=== PATIENT | male | born 1995 | race Caucasian/White ===

== ENCOUNTER 2016-08-19 02:26 | Emergency (ER) | payer SELFPAY ==
[~2016-08-19] VITALS: Ht 177.8 cm; Wt 75.0 kg
[~2016-08-19 02:26] MED LIST: AUGM875 PO; CORTI10A LEFT EAR; LORT5TAB PO
[2016-08-19 02:37] VITALS: BP 111/58; PULSE 95; RESP 16; TEMP 98.1; O2SAT 85
[2016-08-19 02:44] VITALS: BP 107/59; PULSE 88; RESP 16; O2SAT 100
[2016-08-19] MEDS ORDERED: SODIUM CHLOR 0.9% 1000 ML INJ 1,000 ML IV ONE ×2 (02:59→03:45)
[2016-08-19] MEDS ORDERED: SODIUM CHLORIDE 0.9% FLUSH 5 ML FLUSH IVF PRN ×2 (03:00→03:30)
[2016-08-19] MEDS ORDERED: PROCHLORPERAZINE INJ 10 MG/2 ML VIAL IVP ONE (03:00)
[2016-08-19] MEDS ORDERED: SODIUM CHLOR 0.9% 1000 ML INJ 1,000 ML IV SCH (03:19)
[2016-08-19 03:22] VITALS: O2SAT 96
[2016-08-19 03:38] LABS: BLOOD GAS BASE EXCESS -6.3 mmol/L (-2-2); BLOOD GAS CARBOXYHEMOGLOBIN 1.6 % (0-4); BLOOD GAS HCO3 20 mmol/L (22-26); BLOOD GAS METHEMOGLOBIN 2.1 % (0-2); BLOOD GAS O2 HGB SATURATION 94 % (90-100); BLOOD GAS OXYGEN CONTENT 16.9 Vol % (12.0-20.0); BLOOD GAS PCO2 48 mmHg (38-42); BLOOD GAS PO2 146 mmHG (61-120); BLOOD GAS TOTAL HGB 12.6 G/DL (12.0-16.0); TEMP CORR TO 98.6
[2016-08-19 03:39] LABS: CRITICAL VALUE YES; DRAW SITE RT RADIAL; LITER FLOW 2 L/M; NUMBER OF ARTERIAL PUNCTURES 1; OXYGEN DEVICE NASAL CANNULA; STAT YES; ULNAR PULSE PRESENT
--- NOTE | 2016-08-19 03:54 | PD ---
HPI Chief Complaint: Alcohol/Drug Intoxication Time Seen by Provider: 02:45 Travel History International Travel<30 days: No Contact w/Intl Traveler<30days: No Traveled to known affect area: No History of Present Illness HPI 21 yo M arrives by EMS 2/2 etoh intox. pt found behind [employer] asleep. AOx3 upon EMS arrival. He reports drinking tequila tonight. EMS reports the heart rate was 116 on scene and decreased about 88 on arrival here after 600 cc of saline were transfused. Blood pressure upon arrival to the ER 114/74. Patient has no past medical history he takes no medications and has no medication allergies. In the ER he denies pain. PFSH Past Medical History Medical History: Unable to Obtain Diminished Hearing: No Immunizations Current: Yes Tetanus Vaccination: Unknown Past Surgical History Surgical History: Unable to Obtain Social History Alcohol Use: Yes Tobacco Use: No Substance Use: No Allergies-Medications (Allergen,Severity, Reaction): Coded Allergies: No Known Allergies (Verified , 10/22/09) Reported Meds & Prescriptions Reported Meds & Active Scripts Active Lortab 5/500 (Acetaminophen/Hydrocodone Bitart) 5 Mg/500 Mg Tab 1 Tab PO Q6HPRN 3 Days FOR PAIN Augmentin (Amoxicillin/Clavulanate Potassium) 875 Mg Tab 875 Mg PO BID 10 Days Cortisporin Otic Solution (Neomycin/Polymyxin/Hydrocortisone) 10 Ml Soln 3 Drop LEFT EAR QID 7 Days FOR 10 DAYS Review of Systems ROS Limitations: Intoxication Physical Exam Narrative GENERAL: wnwd 21 yo m, etoh on breath, answers questions w single word answers SKIN: Warm and dry. HEAD: Atraumatic. Normocephalic. EYES: Pupils equal and round. No scleral icterus. No injection or drainage. ENT: No nasal bleeding or discharge. Mucous membranes pink and moist. NECK: Trachea midline. No JVD. CARDIOVASCULAR: Regular rate and rhythm. RESPIRATORY: No accessory muscle use. Clear to auscultation. Breath sounds equal bilaterally. GASTROINTESTINAL: Abdomen soft, non-tender, nondistended. Hepatic and splenic margins not palpable. MUSCULOSKELETAL: Extremities without clubbing, cyanosis, or edema. No obvious deformities. NEUROLOGICAL: Answers questions with single word answers. moving all extremities. no focal deficit. PSYCHIATRIC: EtOH intoxication. Data Data Last Documented VS Vital Signs Date Time Temp Pulse Resp B/P Pulse Ox O2 Delivery O2 Flow Rate FiO2 08/19/16 06:06 98.1 100 18 112/60 95 Room Air 08/19/16 03:22 2 Orders Ecg Monitoring (08/19/16 02:59) Iv Access Insert/Monitor (08/19/16 02:59) Oximetry (08/19/16 02:59) Sodium Chloride 0.9% Flush (Ns Flush) (08/19/16 03:00) Prochlorperazine Inj (Compazine Inj) (08/19/16 03:00) Sodium Chlor 0.9% 1000 Ml Inj (Ns 1000 M (08/19/16 02:59) Complete Blood Count With Diff (08/19/16 03:19) Comprehensive Metabolic Panel (08/19/16 03:19) Lipase (08/19/16 03:19) Lactic Acid (08/19/16 03:19) Sodium Chlor 0.9% 1000 Ml Inj (Ns 1000 M (08/19/16 03:19) Sodium Chloride 0.9% Flush (Ns Flush) (08/19/16 03:30) Arterial Blood Gas (Abg) (08/19/16 ) Sodium Chlor 0.9% 1000 Ml Inj (Ns 1000 M (08/19/16 03:45) Alcohol (Ethanol) (08/19/16 05:48) Lactic Acid (08/19/16 05:48) Labs Laboratory Tests Test 08/19/16 08/19/16 08/19/16 03:28 03:45 05:55 Blood Gas Puncture Site RT RADIAL Blood Gas Patient Temperature 98.6 Blood Gas HCO3 20 mmol/L Blood Gas Base Excess -6.3 mmol/L Blood Gas Oxygen Saturation 94 % Arterial Blood pH 7.24 Arterial Blood Partial 48 mmHg Pressure CO2 Arterial Blood Partial 146 mmHG Pressure O2 Arterial Blood Oxygen Content 16.9 Vol % Arterial Blood 1.6 % Carboxyhemoglobin Arterial Blood Methemoglobin 2.1 % Blood Gas Hemoglobin 12.6 G/DL Oxygen Delivery Device NASAL CANNULA Blood Gas Liter Flow 2 L/M White Blood Count 12.0 TH/MM3 Red Blood Count 4.14 MIL/MM3 Hemoglobin 12.4 GM/DL Hematocrit 35.7 % Mean Corpuscular Volume 86.3 FL Mean Corpuscular Hemoglobin 29.9 PG Mean Corpuscular Hemoglobin 34.6 % Concent Red Cell Distribution Width 12.8 % Platelet Count 170 TH/MM3 Mean Platelet Volume 8.4 FL Neutrophils (%) (Auto) 85.1 % Lymphocytes (%) (Auto) 10.4 % Monocytes (%) (Auto) 3.9 % Eosinophils (%) (Auto) 0.4 % Basophils (%) (Auto) 0.2 % Neutrophils # (Auto) 10.2 TH/MM3 Lymphocytes # (Auto) 1.2 TH/MM3 Monocytes # (Auto) 0.5 TH/MM3 Eosinophils # (Auto) 0.0 TH/MM3 Basophils # (Auto) 0.0 TH/MM3 CBC Comment DIFF FINAL Differential Comment Sodium Level 142 MEQ/L Potassium Level 3.8 MEQ/L Chloride Level 110 MEQ/L Carbon Dioxide Level 23.4 MEQ/L Anion Gap 9 MEQ/L Blood Urea Nitrogen 8 MG/DL Creatinine 0.68 MG/DL Estimat Glomerular Filtration 145 ML/MIN Rate Random Glucose 126 MG/DL Lactic Acid Level 2.6 mmol/L 3.3 mmol/L Calcium Level 7.0 MG/DL Protein Corrected Calcium 7.6 MG/DL Total Bilirubin 0.2 MG/DL Aspartate Amino Transf 11 U/L (AST/SGOT) Alanine Aminotransferase 20 U/L (ALT/SGPT) Alkaline Phosphatase 54 U/L Total Protein 6.0 GM/DL Albumin 3.3 GM/DL Lipase 105 U/L Ethyl Alcohol Level 154 MG/DL [facility] Medical Decision Making Medical Screen Exam Complete: Yes Emergency Medical Condition: Yes Differential Diagnosis etoh intox, alcoholic ketoacidosis, electrolyte imbalance, hypoxia Narrative Course ifv given. pt reports feeling much better. mother at bedside. return precautions discussed. pt ready for discharge. Diagnosis Primary Impression: Alcohol abuse Referrals: Primary Care Physician 2 days Additional Instructions: You have a choice when it comes to health care, and we are glad that you chose [facility]. Hopefully, we have met your expectations on today's visit. You are welcome to return to [facility] at any time, as we are committed to meeting the health care needs of our community. Med/Other Pt SpecificInfo: Prescription(s) given Scripts Ondansetron Odt (Zofran Odt)4 Mg Tab4 Mg SL Q8HR PRN (Nausea/Vomiting) #15 TAB Ref 0 Prov:Hamzah Kelly MD 08/19/16 Disposition: 01 DISCHARGE HOME Condition: Stable Hamzah Kelly MD Aug 19, 2016 03:54
[2016-08-19 04:01] LABS: AUTOMATED NEUTROPHIL # 10.2 TH/MM3 (1.8-7.7); BASOPHIL % 0.2 % (0.0-2.0); EOSINOPHIL % 0.4 % (0.0-4.0); HEMATOCRIT 35.7 % (39.0-51.0); HEMO FLAGS DIFF FINAL; LYMPH % 10.4 % (9.0-44.0); LYMPHOCYTE # 1.2 TH/MM3 (1.0-4.8); MEAN CELL VOLUME 86.3 FL (80.0-100.0); MEAN CORPUSCULAR HEMOGLOBIN 29.9 PG (27.0-34.0); MEAN CORPUSCULAR HGB CONC 34.6 % (32.0-36.0); MONO % 3.9 % (0.0-8.0); NEUT % 85.1 % (16.0-70.0); PLATELET COUNT 170 TH/MM3 (150-450); RED BLOOD COUNT 4.14 MIL/MM3 (4.50-5.90); RED CELL DISTRIBUTION WIDTH 12.8 % (11.6-17.2)
[2016-08-19 04:22] LABS: BICARBONATE 23.4 MEQ/L (21.0-32.0); CALCIUM-PROTEIN CORRECTED 7.6 MG/DL (8.5-10.1); POTASSIUM 3.8 MEQ/L (3.5-5.1); TOTAL BILIRUBIN ADULT 0.2 MG/DL (0.2-1.0)
[2016-08-19 06:06] VITALS: BP 112/60; PULSE 100; RESP 18; TEMP 98.1; O2SAT 95
[2016-08-19] MEDS ORDERED: ZOFR4TAB3 SL (06:58)
== END 2016-08-19 08:02 | disposition home or self-care (01) ==
LOC: NEPC 02:26
DX: F10.129 Alcohol abuse with intoxication, unspecified (principal); Y90.6 Blood alcohol level of 120-199 mg/100 ml
CPT/HCPCS: 36600; 80053; 80320; 82805; 83605; 83690; 85025; 96361; 96374; 99284; J0780; J7030